=== PATIENT | female | born 1995 | race Caucasian/White ===

== ENCOUNTER 2021-12-16 14:02 | Emergency (ER) | payer MEDICAID ==
[~2021-12-16] VITALS: Ht 165.1 cm; Wt 67.0 kg
[2021-12-16 14:15] VITALS: BP 147/104
[2021-12-16] MEDS ORDERED: ACETAMINOPHEN 325MG TABLET PO ONE (15:45)
[2021-12-16] MEDS ORDERED: THROAT LOZENGES-BENZOCAINE/MENTH/CETYLPYRD CL LOZENGES MM ONE (15:45)
[2021-12-16] MEDS ORDERED: BACL-141 MT (17:11)
[2021-12-16] MEDS ORDERED: IBUP-2029 MT (17:11)
[2021-12-16] MEDS ORDERED: ACETAMINOPHEN 325MG TABLET PO NR (17:45)
== END 2021-12-16 17:53 | disposition home or self-care (01) ==
LOC: ER 14:02
DX: S06.0X0A Concussion without loss of consciousness, initial encounter (principal); S00.83XA Contusion of other part of head, initial encounter; S16.1XXA Strain of muscle, fascia and tendon at neck level, initial encounter; Y08.89XA Assault by other specified means, initial encounter; Y93.89 Activity, other specified; Y92.89 Other specified places as the place of occurrence of the external cause
CPT/HCPCS: 70486; 81025; 99284

== ENCOUNTER 2022-08-26 14:13 | Emergency (ER) | payer MEDICAID ==
[~2022-08-26] VITALS: Ht 165.1 cm; Wt 75.0 kg
[~2022-08-26 14:13] MED LIST: BACL-141 MT; IBUP-2029 MT
[2022-08-26 14:50] VITALS: BP 112/77
[2022-08-26 18:52] LABS: BASOPHILS % 0.3 % (0.0-2.0); EOSINOPHILS % 0.9 % (0.0-5.0); HEMATOCRIT. 36.4 % (36.0-48.0); HEMOGLOBIN. 12.4 g/dL (12.0-16.0); LYMPHOCYTES % 30.2 % (20.0-50.0); MEAN CORPUSCULAR HEMOGLOBIN 31.6 pg (28.0-32.0); MEAN CORPUSCULAR VOLUME 92.4 fL (81.0-99.0); MEAN PLATELET VOLUME 9.7 fl (7.4-10.4); MONOCYTES % 5.4 % (2.0-8.0); NEUTROPHILS % 63.2 % (40.0-76.0); PLATELET 165 x1000/uL (130-400); RED BLOOD CELL COUNT 3.94 mill/uL (4.2-5.4); RED CELL DISTRIBUTION WIDTH 12.9 % (11.6-14.6)
[2022-08-26 20:17] LABS: CLARITY URINE CLOUDY (CLEAR); COLOR URINE YELLOW (YELLOW); KETONES URINE 2+ (NEGATIVE); LEUKOCYTE ESTERASE URINE 2+ (NEGATIVE); NITRITE URINE NEGATIVE (NEGATIVE); OCCULT BLOOD URINE NEGATIVE (NEGATIVE); PROTEIN URINE NEGATIVE (NEGATIVE); UROBILINOGEN URINE 0.2 E.U./dL (0.2-1.0)
[2022-08-26] MEDS ORDERED: MAGN296S70 MT (22:44)
[2022-08-26] MEDS ORDERED: TOPUD MT (22:44)
[2022-08-26] MEDS ORDERED: DOCU-138 MT (22:44)
== END 2022-08-26 23:09 | disposition home or self-care (01) ==
LOC: ER 14:27
DX: K59.00 Constipation, unspecified (principal); K92.1 Melena
CPT/HCPCS: 36415; 81003; 81025; 82270; 85025; 99283